=== PATIENT | male | born 1980 | race Caucasian/White ===

== ENCOUNTER 2017-07-27 11:52 | Inpatient (IN) | payer OTHER ==
[~2017-07-27] VITALS: Ht 170.2 cm; Wt 75.7 kg
[2017-07-27 13:10] VITALS: BP 117/81
--- NOTE | 2017-07-27 13:10 | NUR ---
The assessment has been completed. CAM LEMUS
--- NOTE | 2017-07-27 14:35 | NUR ---
PATIENT WANTS TO GO TO [facility] IN [facility] FOR HIS AFTERCARE PLAN. YOLANDA DAVENPORT B.A COTTAGE SUPERVISOR
[2017-07-27 14:41] LABS: BILIRUBIN NEGATIVE (NEGATIVE); BLOOD 1+ (NEGATIVE); CLARITY CLEAR (CLEAR); COLOR YELLOW (YELLOW); GLUCOSE NEGATIVE (NEGATIVE); KETONE NEGATIVE (NEGATIVE); LEUKO ESTERASE NEGATIVE (NEGATIVE); NITRITE NEGATIVE (NEGATIVE); PH 8.5 (5.0-9.0); SPECIFIC GRAVITY 1.015 (1.005-1.030)
[2017-07-27 14:51] LABS: BASO # 0.1 10*3/uL (0.0-0.1); BASO % 0.5 % (0.0-1.0); EOS # 0.2 10*3/uL (0.0-0.4); EOS % 1.6 % (1.0-4.0); HEMATOCRIT 47.5 % (42.0-52.0); HEMOGLOBIN 16.4 g/dl (14.0-18.0); LYMPH # 1.7 10*3/uL (1.3-4.4); LYMPH % 17.3 % (27.0-41.0); MEAN CELL VOLUME 87.6 fl (80.0-94.0); MEAN CORPUSCULAR HGB 30.3 pg (27.0-31.0); MEAN CORPUSCULAR HGB CONC 34.5 g/dl (33.0-37.0); MEAN PLATELET VOLUME 9.4 fl (9.6-12.3); MONO # 0.4 10*3/uL (0.1-1.0); MONO % 3.6 % (3.0-9.0); NEUT # 7.6 10*3/uL (2.3-7.9); NEUT % 76.7 % (47.0-73.0); PLATELET COUNT AUTOMATED 346 10*3/uL (130-400); RED BLOOD COUNT 5.42 10*6/uL (4.50-5.90); RED CELL DISTRI WIDTH 12.2 % (0-14.5)
[2017-07-27 14:51] LABS: BACTERIA TRACE; MUCOUS TRACE
[2017-07-27 14:52] LABS: RBC 21-30 rbc/hpf (0-2); WBC 31-40 wbc/hpf (0-5)
--- NOTE | 2017-07-27 15:00 | NUR ---
ASSUMED CARE OF PATIENT. PATIENT WAS ANTSY AND AGITATED UPON ASSESSMENT. HE WAS C/O RESTLESS LEGS AND CRAMPS. PATIENT IS IN STABLE CONDITION AT THIS TIME.
[2017-07-27 15:07] LABS: ALBUMIN 3.9 gm/dl (3.1-4.5); ALKALINE PHOSPHATASE 74 U/L (45-117); BUN 12 mg/dl (7-24); CHLORIDE 102 mmol/L (98-107); CREATININE 1.03 mg/dL (0.70-1.30); POTASSIUM 4.7 mmol/L (3.5-5.1); SGOT/AST 21 IU/L (3-35); SGPT/ALT 26 U/L (12-78); SODIUM 139 mmol/L (136-145); TOTAL PROTEIN 7.2 gm/dL (6.4-8.2)
[2017-07-27 15:08] LABS: ETHYL ALCOHOL < 3.0 mg/dl (<3)
[2017-07-27 15:11] LABS: URINE AMPHETAMINES < 1000 (1000ng/ml); URINE BARBITURATES < 200 (200ng/ml); URINE BENZODIAZEPINES < 200 (200ng/ml); URINE CANNABINOIDS (THC) < 50 (50ng/ml); URINE COCAINE < 300 (300ng/ml); URINE METHADONE < 300 (300ng/ml); URINE OPIATES > 300 (300ng/ml)
[2017-07-27 15:19] LABS: URINE PHENCYCLIDINE < 25 (25ng/ml)
[2017-07-27 16:00] VITALS: BP 125/76
--- NOTE | 2017-07-27 16:02 | NUR ---
PT RECEIVED REQUIP AND MOTRIN FOR RESTLESS LEGS AND CRAMPS.
--- NOTE | 2017-07-27 18:15 | NUR ---
PT CLAIMS REQUIP AND MOTRIN WERE EFFECTIVE. RECEIVED VISTARIL FOR ANXIETY. STATES HE "KNOWS ALREADY VISTARIL DID NOT WORK." WILL REASSESS.
[2017-07-27 20:00] VITALS: BP 138/75
[2017-07-27] MEDS ORDERED: SEROQUEL400 M1 PO (20:30)
[2017-07-27] MEDS ORDERED: CLONAZEPAM0.5 M2 PO (20:32)
--- NOTE | 2017-07-27 23:38 | NUR ---
Resting quietly in bed. Denies pain. Resp easy and regular. Dr. Diaz notified of home medications with orders recieved. Sent 1 Seroquel to pharmacy. will continue to monitor.
[2017-07-28] VITALS: BP 98/50
--- NOTE | 2017-07-28 01:58 | NUR ---
PATIENT GIVEN ROBAXIN AND VISTARIL PER PT REQUEST FOR ANXIETY AND LEG RESTLESSNESS. WILL CONTINUE TO MONITOR AND REASSESS.
[2017-07-28 04:00] VITALS: BP 130/77
--- NOTE | 2017-07-28 04:00 | NUR ---
PATIENT RESTING QUIETLY. NO FURTHER C/O VOICED.
[2017-07-28 08:00] VITALS: BP 119/83
--- NOTE | 2017-07-28 09:23 | NUR ---
MEDICATED WITH PRN PO MOTRIN FOR C/O LOWER BACK ACHES.
--- NOTE | 2017-07-28 11:17 | NUR ---
PRN PO MOTRIN EFFECTIVE, PER PATIENT.
[2017-07-28 12:00] VITALS: BP 131/72
--- NOTE | 2017-07-28 15:36 | NUR ---
MEDICATED WITH PRN PO BENTYL FOR ABDOMINAL CRAMPING.
--- NOTE | 2017-07-28 15:37 | NUR ---
PRN NICOTROL INHALER CARTRIDGE PROVIDED FOR SMOKING CRAVINGS.
[2017-07-28 16:00] VITALS: BP 124/78
--- NOTE | 2017-07-28 16:55 | NUR ---
PRN PO BENTYL EFFECTIVE, PER PATIENT.
[2017-07-28 20:00] VITALS: BP 122/79
--- NOTE | 2017-07-28 23:35 | NUR ---
ASSUMED CARE OF PT. AT THIS TIME. PT. IS RESTING IN BED WATCHING TV WITH NO SXS OF WITHDRAWL OR C/O AT THIS TIME. RESPERS ARE EASY AND REGULAR. HOB IS ELEVATED AND CALL LIGHT IS WITHIN REACH. BED IS LOW AND WHEELS ARE LOCKED, SEE SHIFT ASSESSMENT.
[2017-07-29] VITALS: BP 106/60
--- NOTE | 2017-07-29 01:03 | NUR ---
PRN REQUIP GIVEN FOR PT. C/O RESTLESS LEGS. CALL LIGHT WITHIN REACH, WILL MONITOR EFFECT.
[2017-07-29 08:00] VITALS: BP 125/88
--- NOTE | 2017-07-29 14:22 | NUR ---
PT SIGNED OUT AGAINST MEDICAL ADVICE AT THIS TIME. 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
--- NOTE | 2017-07-29 14:38 | NUR ---
DR. RANGEL NOTIFIED OF PT LEAVING AMA.
== END 2017-07-29 14:22 | disposition left against medical advice (07) | DRG 894 ==
LOC: 5E 11:52
PROVIDERS: Student in an Organized Health Care Education/Training Program; ADMIT Emergency Medicine
DX: F11.23 Opioid dependence with withdrawal (principal); D72.810 Lymphocytopenia; F41.9 Anxiety disorder, unspecified; R31.29 Other microscopic hematuria; Z53.21 Procedure and treatment not carried out due to patient leaving prior to being seen by health care provider; F43.10 Post-traumatic stress disorder, unspecified; R10.84 Generalized abdominal pain; Z71.6 Tobacco abuse counseling; Z72.0 Tobacco use; Z82.49 Family history of ischemic heart disease and other diseases of the circulatory system; Z83.3 Family history of diabetes mellitus